=== PATIENT | female | born 1980 | race Caucasian/White ===

== ENCOUNTER 2017-01-24 12:54 | Emergency (ER) | payer SELFPAY ==
[2017-01-24 13:03] VITALS: BP 118/89; PULSE 79; RESP 18; TEMP 98.2; O2SAT 98
--- NOTE | 2017-01-24 13:40 | EDPHY ---
H & P Stated Complaint: hand and foot swelling (smells of etoh) Time Seen by Provider: 01/24/17 13:41 HPI/ROS: CHIEF COMPLAINT: Extremity swelling HISTORY OF PRESENT ILLNESS: This patient is a 36 year old female who presents to the Emergency Department complaining of intermittent swelling bilaterally to both her upper and lower extremities over the past month. She reports 2-3 brief episodes of feeling flushed over the past month as well which she attributes to hypertension, though she has no history of hypertensive episodes and has not measured her blood pressure during these episodes. She reports experiencing occasional red bumps on her hands--has one now that is scabbed and had some drainage earlier. She has no additional complaints. She denies chest pain, chills, abdominal pain, vomiting, diarrhea, or recent cough or cold. She denies any pertinent medical history. REVIEW OF SYSTEMS: A ten point review of systems was performed and is negative with the exception of the items mentioned in the HPI. 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 - Physical Exam Exam: General Appearance: Alert. Vital signs reviewed. BP 118/89. Eyes: Pupils equal and round, no conjunctival injection, no discharge. Anicteric. ENT, Mouth: Mucous membranes are moist, no oropharyngeal erythema or edema. Neck: No lymphadenopathy, supple. Respiratory: Lungs are clear to auscultation; no wheezes, rales, or rhonchi. Cardiovascular: Regular rate and rhythm; no murmur, rub, or gallop. Gastrointestinal: Abdomen is soft and nontender, no masses or organomegaly, bowel sounds normal. Skin: Warm and dry, no rashes on exposed skin, normal color. Back: Nontender to palpation over the thoracolumbar spine. No CVAT. Extremities: No calf tenderness or swelling. Trace bilateral ankle edema. Mild bilateral hand edema. Scabbed lesion over fourth PIP of right hand; no erythema , fluctuance, or warmth. Neurological: Alert and oriented. Moving all four extremities easily and equally. Psychiatric: Normal affect. Constitutional: Initial Vital Signs Temperature (C) 36.8 C 01/24/17 13:00 Heart Rate 79 01/24/17 13:00 Respiratory Rate 18 01/24/17 13:00 Blood Pressure 118/89 H 01/24/17 13:00 O2 Sat (%) 98 01/24/17 13:00 O2 Delivery Mode Room Air Allergies/Adverse Reactions: No Known Allergies Allergy (Unverified 01/24/17 13:00) Home Medications: Medication Instructions Recorded NK [No Known Home Meds] 01/24/17 Medical Decision Making ED Course/Re-evaluation: This normally healthy, alert and well-appearing 36 year-old female presents with complaint of intermittent hand and ankle edema over the past month. Exam indicates very mild bilateral hand edema and one scabbed lesion to her left hand over the PIP joint without erythema or fluctuance. She has trace ankle edema. Will proceed with baseline labs and discharge home if normal with instructions to follow-up with a primary care provider if her complaints persist. She is agreeable to this treatment plan. The etiology of her edema is unclear. I do not suspect CHF or renal issues. There is no serious infection. Labs obtained and are unremarkable. I discussed these results with the patient. She will be discharged home in good condition with customary return precautions and referrals to [facility] and our on-call project eng, Dr. Son. - Data Points Laboratory Results: Laboratory Results 01/24/17 14:45 01/24/17 14:45 Departure - Departure Disposition: Home, Routine, Self-Care Clinical Impression: Hand edema Condition: Good Instructions: Leg Edema (ED) Additional Instructions: 1. Follow-up with a primary care provider for further evaluation if your concerns persist. We have referred you to our on-call primary care provider. We have also included contact information for [facility]. 2. Return to the Emergency Department if you experience increased swelling, difficulty breathing, chest pain, lightheadedness, or for other serious concerns. Referrals: Jacob Son MD [[facility] [place] Primary Care Provider] - As per Instructions [facility],. [Clinic] - As per Instructions Report Scribed for: Rhonda Cantu Report Scribed by: Charito Self Date of Report: 01/24/17 Time of Report: 14:50 Physician Review and Approval Statement: 01/24/17 13:40 Portions of this note were transcribed by the medical director/head team physician. I, Dr. Rhonda Cantu, personally performed the history, physical exam, and medical decision- making; and confirmed the accuracy of the information in the transcribed note.
[2017-01-24 14:55] LABS: % IMMATURE GRANULYOCYTES 0.2 % (0.0-1.1); ABSOLUTE IMMATURE GRANULOCYTES 0.01 10^3/uL (0.00-0.10); ADD DIFF? NO; ADD MORPH? NO; ADD SCAN? NO; ATYPICAL LYMPHOCYTE FLAG 30 (0-99); FRAGMENT RBC FLAG 0 (0-99); HEMATOCRIT 39.3 % (38.0-47.0); HEMOGLOBIN 12.9 g/dL (12.6-16.3); LEFT SHIFT FLG 0 (0-99); LIPEMIA HEMOLYSIS FLAG 80 (0-99); MEAN CELL HEMOGLOBIN 31.9 pg (27.9-34.1); MEAN CELL HEMOGLOBIN CONCENTR. 32.8 g/dL (32.4-36.7); MEAN PLATELET VOLUME 9.5 fL (8.7-11.7); PLATELET CLUMPS FLAG 0 (0-99); PLATELET COUNT 323 10^3/uL (150-400); RED BLOOD CELL COUNT 4.05 10^6/uL (4.18-5.33); RED CELL DISTRIBUTION WIDTH 12.5 % (11.5-15.2)
[2017-01-24 15:11] LABS: ANION GAP 10 mEq/L (8-16); CALCIUM 9.9 mg/dL (8.5-10.4); CARBON DIOXIDE 26 mEq/l (22-31); CHLORIDE 104 mEq/L (97-110); CREATININE 0.7 mg/dL (0.6-1.0); GLOMERULAR FILTRATION RATE > 60; GLUCOSE 86 mg/dL (70-100); POTASSIUM 4.6 mEq/L (3.5-5.2); SODIUM 140 mEq/L (134-144)
== END 2017-01-24 15:45 | disposition home or self-care (01) ==
DX: R60.9 Edema, unspecified (principal)